=== PATIENT | male | born 1980 | race Caucasian/White ===

== ENCOUNTER → 2021-01-18 | Outpatient (CLI) | payer MEDICARE ==
[~2021-01-18] MED LIST: DIPROSONE 0.05%15 GM EXT; ENULOSE10 GM/15 M PO; IBUPROFEN600 MG PO; KEFLEX500 MG PO
== END ==
LOC: EMI 14:30
DX: G35 Multiple sclerosis (principal)
CPT/HCPCS: 70553; A9576

== ENCOUNTER 2021-10-25 21:27 | Emergency (ER) | payer MEDICARE ==
[2021-10-26] MEDS ORDERED: AUGMENTIN XR 11 EACH PO (00:17)
== END 2021-10-26 00:33 | disposition home or self-care (01) ==
LOC: ER1 21:27
DX: L03.114 Cellulitis of left upper limb (principal); I10 Essential (primary) hypertension; E11.9 Type 2 diabetes mellitus without complications
CPT/HCPCS: 99282